=== PATIENT | male | born 1990 | race African-American/Black ===

== ENCOUNTER 2017-06-26 08:37 | Emergency (ER) | payer OTHER ==
[~2017-06-26] VITALS: Ht 175.3 cm; Wt 94.5 kg
[2017-06-26 08:59] VITALS: BP 135/67
[2017-06-26] MEDS ORDERED: [UNRECOGNIZED DRUG - OTHER] TOP (09:08)
== END 2017-06-26 10:38 | disposition left against medical advice (07) ==
LOC: M ED 08:37
DX: K62.89 Other specified diseases of anus and rectum (principal); Z53.21 Procedure and treatment not carried out due to patient leaving prior to being seen by health care provider